=== PATIENT | male | born 1960 | race Caucasian/White ===

== ENCOUNTER 2020-12-06 16:22 | Inpatient (IN) ==
[2020-12-06] MEDS ORDERED: *HR* FentaNYL (PF) 100 MCG/2 ML VIAL ONE (17:01)
[2020-12-06] MEDS ORDERED: 0.9 % Sodium Chloride 1,000 ML ONE (17:02)
[2020-12-06] MEDS ORDERED: ISOVUE-370 200 ML INFUS..BTL ONE ×2 (17:02→17:08)
[2020-12-06] MEDS ORDERED: *HR* Midazolam HCl 2 MG/2 ML VIAL ONE (17:02)
[2020-12-06] MEDS ORDERED: *HR* Heparin 10,000 UNIT/10 ML VIAL ONE (17:02)
[2020-12-06] MEDS ORDERED: Nitroglycerin 1,000 MCG/10 ML VIAL IV ONE (17:02)
[2020-12-06] MEDS ORDERED: Heparin 1,000 UNITS/500 mL 500 ML ONE ×3 (17:02→17:51)
[2020-12-06] MEDS ORDERED: *HR* Heparin 5,000 UNIT/ML VIAL IVP PRN ×2 (17:03)
[2020-12-06 17:09] LABS: Hematocrit 43.4 % (37.5-50.1); Hemoglobin 13.9 g/dL (12.9-16.9); Mean Corpuscular Hemoglobin 29.3 pg (28.0-33.3); Mean Corpuscular Volume 91.4 fL (83.0-100.0); Mean Platelet Volume 8.7 fL (9.4-12.4); Platelet Count 215 K/mcL (140-400); Red Blood Count 4.75 M/mcL (4.19-5.50); Red Cell Distribution Width 14.5 % (11.5-14.5); White Blood Count 5.8 K/mcL (4.3-11.1)
[2020-12-06] MEDS: Heparin 25,000UNIT/250ML 1/2NS 25,000 UNIT/250 ML IV.SOLN IVC SCH (17:12)
[2020-12-06] MEDS ORDERED: methylPREDNISolone 125 MG/2 ML VIAL ONE (17:22)
[2020-12-06 17:27] LABS: Heparin anti-factor XA UFH 0.4 IU/mL (0.30-0.70)
[2020-12-06 17:28] LABS: INR 1.2; Prothrombin Time 13.6 Seconds (9.4-12.1)
[2020-12-06] MEDS ORDERED: *HR* Ticagrelor 90 MG TABLET ONE (17:39)
[2020-12-06] MEDS ORDERED: *HR* Atropine Sulfate 1 MG/10 ML SYRINGE ONE (17:44)
[2020-12-06] MEDS ORDERED: Perflutren Lipid Microsphere 1.3 ML in 0.9 % Sodium Chloride 8.7 ML IVP PRN (18:17)
[2020-12-06] MEDS ORDERED: Nitroglycerin 0.4 MG TAB.SUBL SL PRN (18:17)
[2020-12-06] MEDS: *HR* Ticagrelor 90 MG TABLET PO SCH (20:25)
[2020-12-07 06:37] LABS: Basophils % 0.2 %; Hematocrit 40.8 % (37.5-50.1); Hemoglobin 13.4 g/dL (12.9-16.9); Immature Granulocytes % 0.5 % (0-4); Lymphocytes # 0.8 K/mcL (0.6-4.6); Lymphocytes % 12.5 %; Mean Corpuscular HGB Conc 32.8 g/dL (31.6-35.5); Mean Corpuscular Hemoglobin 29.6 pg (28.0-33.3); Mean Corpuscular Volume 90.3 fL (83.0-100.0); Monocytes # 0.3 K/mcL (0.0-1.3); Monocytes % 4.8 %; Neutrophils # 5.1 K/mcL (1.6-8.9); Platelet Count 245 K/mcL (140-400); Red Blood Count 4.52 M/mcL (4.19-5.50); Red Cell Distribution Width 14.3 % (11.5-14.5); White Blood Count 6.3 K/mcL (4.3-11.1)
[2020-12-07 07:00] LABS: Alanine Aminotransferase 41 Units/L (7-52); Albumin 3.9 g/dL (3.5-5.7); Albumin/Globulin Ratio 1.2 (1.1-2.2); Alkaline Phosphatase 71 Units/L (34-104); Aspartate Amino Transferase 57 Units/L (13-39); BUN/Creatinine Ratio 28 (6-26); Bilirubin,Direct 0.2 mg/dL (0.0-0.2); Bilirubin,Indirect 0.4 mg/dL (0.0-1.0); Bilirubin,Total 0.6 mg/dL (0.3-1.0); Blood Urea Nitrogen 19 mg/dL (6-20); Calcium 10.2 mg/dL (8.6-10.3); Carbon Dioxide 21 mEq/L (23-29); Chloride 103 mEq/L (98-107); Chol/HDL Ratio 6.9 (0-4.9); Cholesterol 166 mg/dL (< 200); Globulin 3.3 g/dL (2.4-3.5); Glucose 136 mg/dL (70-105); HDL Cholesterol 24 mg/dL (40-59); LDL Cholesterol,Calculated 117 mg/dL (< 100); Magnesium 2.1 mg/dL (1.6-2.6); Osmolality,Calculated 282 (280-300); Potassium 4.2 mEq/L (3.5-5.1); Sodium 134 mEq/L (136-145); Total Protein 7.2 g/dL (6.4-8.9); Triglycerides 125 mg/dL (< 150); eGFR For African Americans > 60 (> 60); eGFR For Non-African Americans > 60 (> 60)
[2020-12-07] MEDS: Aspirin 81 MG TAB.CHEW PO SCH (08:16)
[2020-12-07] MEDS: *HR* Ticagrelor 90 MG TABLET PO SCH ×2 (08:16→19:50)
[2020-12-07] MEDS: Metoprolol XL (24 HR) Succ 25 MG TAB.ER.24H PO SCH (08:21)
[2020-12-07 09:31] LABS: Estimated Average Glucose 105 mg/dl; Hemoglobin A1C 5.3 %
[2020-12-07] MEDS: Nitroglycerin 0.2 MG PATCH.TD24 TD SCH (10:02)
[2020-12-07] MEDS: Heparin 25,000UNIT/250ML 1/2NS 25,000 UNIT/250 ML IV.SOLN IVC SCH (13:37)
[2020-12-08] MEDS: Heparin 25,000UNIT/250ML 1/2NS 25,000 UNIT/250 ML IV.SOLN IVC SCH (05:15)
[2020-12-08] MEDS: Aspirin 81 MG TAB.CHEW PO SCH (08:06)
[2020-12-08] MEDS: *HR* Ticagrelor 90 MG TABLET PO SCH (08:06)
[2020-12-08] MEDS: Nitroglycerin 0.2 MG PATCH.TD24 TD SCH (08:12)
[2020-12-08] MEDS: Metoprolol XL (24 HR) Succ 25 MG TAB.ER.24H PO SCH (08:15)
[2020-12-08] MEDS ORDERED: Isosorbide MONOnitrate (24 HR) 30 MG TAB.ER.24H PO SCH (09:00)
[2020-12-08 10:46] VITALS: BP 107/70
== END 2020-12-08 11:05 | disposition home or self-care (01) | DRG 190 ==
LOC: EMEROOARM 16:22 → ICNU 17:14
PROVIDERS: ADMIT Internal Medicine Interventional Cardiology; ATTEND Internal Medicine Interventional Cardiology